=== PATIENT | male | born 1950 | race Caucasian/White ===

== ENCOUNTER 2017-03-25 05:52 | Emergency (ER) | payer OTHER ==
[~2017-03-25] VITALS: Ht 175.3 cm; Wt 113.3 kg
[2017-03-25 05:56] VITALS: TEMP 36.4; Ht 175.3 cm; Wt 113.3 kg
[2017-03-25] MEDS ORDERED: SODIUM CHLORIDE 0.9% 1000ML 1,000 ML IV STA (06:39)
[2017-03-25] MEDS ORDERED: SODIUM CHLORIDE 0.9% 1000ML 1,000 ML IV ONE (06:39)
[2017-03-25] MEDS ORDERED: ONDANSETRON INJ 2 MG/ML 2 ML VIAL IV STA (06:39)
[2017-03-25] MEDS ORDERED: KETOROLAC TROMETHAMINE 30 MG/ML VIAL IV STA (06:39)
--- NOTE | 2017-03-25 06:45 | EMERGENCY ROOM VISIT NOTE ---
History Report prepared by Mckenzie: Manjula Thompson Under the Supervision of: Dr. Calvin Oates M.D. First contact with patient: 06:29 Chief Complaint: BACK PAIN Stated Complaint: BACK PAIN History of Present Illness The patient is a 66 year old male who presents to the Emergency Room with complaints of intermittent right lower back pain beginning 1 week ago. The patient states that he was at work 1 week ago and had a bowel movement and when he stood up he had pain across his lower back. He reports that over the next few days his pain worsened and yesterday he had 3 episodes of back spasm during his meetings that lasted for about 20 minutes. He notes that he used heat on his back without relief of his symptoms. The patient states that he has no history of kidney stones. He complains of dry heaves and nausea. He denies any abdominal pain, fever, chills, vomiting, rash, urinary symptoms, chest pain, shortness of breath, and changes in bowel movements. He notes that he is on a baby aspirin once a day. The patient reports that his pain is worse with breathing. Source of History: patient Onset: 1 week ago Position: back (lower) Timing: intermittent Modifying Factors (Worsening): breathing Associated Symptoms: + nausea, No fevers, No chills, No chest pain, No SOB, No vomiting, No abdominal pain, No urinary symptoms, No rash Note: He complains of dry heaves. He denies any changes in bowel movements. Review of Systems See HPI for pertinent positives & negatives. A total of 10 systems reviewed and were otherwise negative. Past Medical & Surgical Medical Problems: (1) Hypertension Old medical records were attempted to be reviewed but there are no old records at this hospital. Nurse's notes were reviewed and I agree with. Denies history of kidney stones. Family History No pertinent family history stated. Social History Smoking Status: Never Smoker Housing Status: lives with family Occupation Status: employed Current/Historical Medications Scheduled Aspirin (Aspirin Ec), 81 MG PO DAILY Atenolol (Tenormin), 50 MG PO DAILY Ciprofloxacin Hcl (Cipro), 500 MG PO BID Dietary Management Product (Rheumate), 1 CAP PO DAILY Ezetimibe (Zetia), 10 MG PO DAILY Fish Oil (Alma-3), 1 CAP PO DAILY Fluoxetine (Prozac), 20 MG PO DAILY Milk Thistle (Silybum Marian[place] (Milk Thistle), 1,000 MG PO DAILY Omeprazole (Prilosec), 20 MG PO DAILY Tamsulosin Hcl (Flomax), 0.4 MG PO QD Vitamin E (Vitamin E), 1,000 UNIT PO DAILY Scheduled PRN Oxycodone Immediate Rel Tab (Roxicodone Ir), 1-2 TAB PO Q4H PRN for Severe Pain Allergies Coded Allergies: No Known Allergies (Unverified , 03/25/17) Physical Exam Vital Signs Date Time Temp Pulse Resp B/P (MAP) Pulse Ox O2 Delivery O2 Flow Rate FiO2 03/25/17 08:17 80 16 153/82 96 03/25/17 07:33 67 16 145/64 97 Room Air 03/25/17 05:56 36.4 64 18 202/87 100 Room Air Physical Exam General: Well developed well nourished, breathing comfortably on room air. Normal speech. Uncomfortable appearing middle aged male complaining of right flank pain. HEENT: Normal cephalic atraumatic. Pupils are equal round and reactive to light. Extraocular movements are intact. Oropharynx is pink with moist mucous membranes. No swelling of the mouth lips or tongue. Neck: Supple with a midline trachea. No meningeal signs or stiffness, no JVD or bruits. No Stridor. Chest: Clear to auscultation bilaterally. No wheezes or rhonchi. No increased work of breathing. Heart: regular rate and rhythm. Abdomen: Soft nontender, nondistended without rebound guarding or rigidity. Extremities: No cyanosis clubbing or edema. No calf tenderness or assymetry Spine/Back. Non tender to palpation. Minimally tender to palpation of the right flank. Skin: Good turgor without rashes. Neurologic exam: Cranial nerves two through 12 are intact. Motor and sensation are intact and symmetrical throughout. Medical Decision & Procedures ER Provider Diagnostic Interpretation: CT results as stated below per my review and radiologist interpretation: CT SCAN OF THE ABDOMEN AND PELVIS WITHOUT CONTRAST FINDINGS: Lower chest: The heart is normal in size and configuration, without pericardial effusion. The lung bases and pleural spaces are clear. Liver: There is hepatic steatosis. No focal masses are visualized. Gallbladder: Cholelithiasis Spleen: Normal in size and attenuation. Pancreas: Unremarkable. Adrenal glands: Unremarkable. Kidneys: There are punctate nonobstructing left renal calculi. There is right-sided hydronephrosis and perinephric stranding. There are tiny right renal calculi. There is obstructing 6 mm proximal right ureteral calculus at the level the right ureteropelvic junction. Bowel: There are no transition zones indicate bowel obstruction. There is colonic diverticulosis. There are no acute peridiverticular inflammatory changes. By history the appendix is surgically absent Peritoneum: There is no intraperitoneal free air or abdominal ascites. Vasculature: The abdominal aorta is normal in course and caliber. Adenopathy: None. Pelvic viscera: There is mild prostamegaly Skeletal structures: No destructive osseous lesions are seen. IMPRESSION: 1. Bilateral nephrolithiasis 2. 6 mm obstructing calculus at the level of the right ureteropelvic junction Electronically signed by: Reid Marquez M.D. 03/25/2017 7:39 AM Dictated Date/Time: 03/25/2017 7:37 AM Laboratory Results 03/25/17 06:50 Red Blood Count 5.35, Mean Corpuscular Volume 91.4, Mean Corpuscular Hemoglobin 33.3, Mean Corpuscular Hemoglobin Concent 36.4, Mean Platelet Volume 10.6, Neutrophils (%) (Auto) 82.1, Lymphocytes (%) (Auto) 9.5, Monocytes (%) (Auto) 7.5, Eosinophils (%) (Auto) 0.4, Basophils (%) (Auto) 0.3, Neutrophils # (Auto) 12.95, Lymphocytes # (Auto) 1.50, Monocytes # (Auto) 1.19, Eosinophils # (Auto) 0.06, Basophils # (Auto) 0.04 03/25/17 06:50 Test 03/25/17 06:45 03/25/17 06:50 Urine Color YELLOW Urine Appearance CLEAR (CLEAR) Urine pH 5.0 (4.5-7.5) Urine Specific [place] 1.024 (1.000-1.030) Urine Protein NEG (NEG) Urine Glucose (UA) 1+ (NEG) Urine Ketones 1+ (NEG) Urine Occult Blood 3+ (NEG) Urine Nitrite NEG (NEG) Urine Bilirubin NEG (NEG) Urine Urobilinogen NEG (NEG) Urine Leukocyte Esterase NEG (NEG) Urine WBC (Auto) 1-5 /hpf (0-5) Urine RBC (Auto) 10-30 /hpf (0-4) Urine Hyaline Casts (Auto) 1-5 /lpf (0-5) Urine Epithelial Cells (Auto) 0-5 /lpf (0-5) Urine Bacteria (Auto) NEG (NEG) White Blood Count 15.77 K/uL (4.8-10.8) Red Blood Count 5.35 M/uL (4.7-6.1) Hemoglobin 17.8 g/dL (14.0-18.0) Hematocrit 48.9 % (42-52) Mean Corpuscular Volume 91.4 fL (80-100) Mean Corpuscular Hemoglobin 33.3 pg (25-34) Mean Corpuscular Hemoglobin Concent 36.4 g/dl (32-36) Platelet Count 186 K/uL (130-400) Mean Platelet Volume 10.6 fL (7.4-10.4) Neutrophils (%) (Auto) 82.1 % Lymphocytes (%) (Auto) 9.5 % Monocytes (%) (Auto) 7.5 % Eosinophils (%) (Auto) 0.4 % Basophils (%) (Auto) 0.3 % Neutrophils # (Auto) 12.95 K/uL (1.4-6.5) Lymphocytes # (Auto) 1.50 K/uL (1.2-3.4) Monocytes # (Auto) 1.19 K/uL (0.11-0.59) Eosinophils # (Auto) 0.06 K/uL (0-0.5) Basophils # (Auto) 0.04 K/uL (0-0.2) RDW Standard Deviation 44.3 fL (36.4-46.3) RDW Coefficient of Variation 13.4 % (11.5-14.5) Immature Granulocyte % (Auto) 0.2 % Immature Granulocyte # (Auto) 0.03 K/uL (0.00-0.02) Anion Gap 9.0 mmol/L (3-11) Est Creatinine Clear Calc Drug Dose 64.4 ml/min Estimated GFR () 60.3 Estimated GFR (Non- 52.0 BUN/Creatinine Ratio 14.4 (10-20) Calcium Level 10.0 mg/dl (8.5-10.1) Total Bilirubin 0.5 mg/dl (0.2-1) Direct Bilirubin 0.1 mg/dl (0-0.2) Aspartate Amino Transf (AST/SGOT) 55 U/L (15-37) Alanine Aminotransferase (ALT/SGPT) 110 U/L (12-78) Alkaline Phosphatase 166 U/L (45-117) Total Protein 8.4 gm/dl (6.4-8.2) Albumin 4.3 gm/dl (3.4-5.0) Lipase 143 U/L (73-393) Laboratory studies as stated above per my review. Medications Administered Medications (Trade) Dose Ordered Sig/Coty Route Start Time Stop Time Status Last Admin Dose Admin Sodium Chloride 1,000 ml @ 999 mls/hr Q1H1M STAT IV 03/25/17 06:39 03/25/17 07:39 DC 03/25/17 06:39 999 MLS/HR Ondansetron HCl (Zofran Inj) 4 mg NOW STAT IV 03/25/17 06:39 03/25/17 06:42 DC 03/25/17 07:02 4 MG Ketorolac Tromethamine (Toradol Inj) 30 mg NOW STAT IV 03/25/17 06:39 03/25/17 06:42 DC 03/25/17 07:02 30 MG Ciprofloxacin (Cipro Tab) 500 mg NOW STAT PO 03/25/17 08:04 03/25/17 08:05 DC 03/25/17 08:28 500 MG Tamsulosin HCl (Flomax Cap) 0.4 mg NOW STAT PO 03/25/17 08:04 03/25/17 08:05 DC 03/25/17 08:28 0.4 MG ED Course 0631: Past medical records reviewed. The patient was evaluated in room B9, and a complete history and physical examination were performed. 0639: Toradol Inj 30mg IV, Zofran Inj 4mg IV, Sodium Chloride 1000 ml @ 200 mls/ hr IV, Sodium Chloride 1000 ml @ 999 mls/hr IV. 0655: I reevaluated the patient. He is resting comfortably and is waiting to go over to CT scan. Blood work and urine have been obtained. 0703: I reevaluated the patient. He was just medicated and is on his way to CT scan. 0804: The patient feels better and would like to go home. 0804: Flomax Cap 0.4mg PO, Cipro Tab 500mg PO. 0815: Oxycodone HCl 1 homepack PO. 0817: Upon reevaluation, the patient is doing well. I discussed the results and treatment plan with the patient. He verbalized agreement of the treatment plan. The patient was discharged home. Medical Decision Differential diagnosis includes kidney stone, musculoskeletal, infection, electrolyte or metabolic abnormality, aneurism. Medication Reconciliation: I attest that I have personally reviewed the patient' s current medication list. Blood Pressure Screening: Patient was found to have a slightly elevated blood pressure due to pain. I do not believe that the patient requires hypertension monitoring. This patient comes in as described above he has right flank pain. It's been going on for a week but more intermittently, constant last night he appears very uncomfortable. There is no radiation down his leg. he has no numbness or weakness or anything to suggest cauda equina syndrome or neurologic or neurovascular compromise. He has no abdominal pain or distention his vital signs are stable in fact he is hypertensive likely secondary to pain. IV access was established and blood work was obtained he was given Toradol 30 mg IV and Zofran 4 mg IV. Blood work urinalysis and CAT scan of the abdomen was ordered. I wanted to investigate the possibility of a kidney stone and also rule out other pathology such as aneurysm although I think that's less likely. CAT scan does show a proximal 6 mm stone. Given the fact has been there for a week and is large and proximal, it may not pass on its own. He seems much more comfortable and does feel up to going home. I will start him on Cipro for the possibility of bacterial coverage however at this point ,he has nothing to suggest infection or pyelonephritis. He will strain his urine use ibuprofen for pain. For breakthrough pain, use OxyIR 5 mg, one or 2 pills every 4-6 hours as needed. He was warned that OxyIR could make him drowsy and do not take before drinking, driving, working. They should have close follow-up with his regular doctor urologist. Return ER if: fever, chills, not tolerating fluids, pain not adequately tolerated, any new problems concerns. Impression Primary Impression: Right flank pain Additional Impression: Kidney stone Scribe Attestation The scribe's documentation has been prepared under my direction and personally reviewed by me in its entirety. I confirm that the note above accurately reflects all work, treatment, procedures, and medical decision making performed by me. Departure Information Dispostion Home / Self-Care Prescriptions Tamsulosin Hcl (FLOMAX) 0.4 Mg Cap 0.4 MG PO QD for 14 Days, #14 CAP Prov: Calvin Oates M.D. 03/25/17 Ciprofloxacin Hcl (CIPRO) 500 Mg Tab 500 MG PO BID, #14 TAB Prov: Calvin Oates M.D. 03/25/17 Oxycodone Immediate Rel Tab (ROXICODONE IR) 5 Mg Tab 1-2 TAB PO Q4H Y for Severe Pain, #24 TAB Prov: Calvin Oates M.D. 03/25/17 Referrals No Doctor, Assigned (PCP) Forms HOME CARE DOCUMENTATION FORM, IMPORTANT VISIT INFORMATION Patient Instructions [facility] Additional Instructions Rest. Drink plenty of fluids. Strain your urine. Use ibuprofen 600 mg every 6 hours, take with food For more severe pain, may use OxyIR 5 mg, one or 2 pills every 4-6 hours as needed OxyIR may make you drowsy and do not take before drinking, driving, working Use Flomax once a day Return if: Fever or chills, pain not adequately controlled, vomiting, worsening symptoms, any new problems concerns Follow-up with your doctor/urologist on Tuesday. In all likelihood this stone will not pass and you may need intervention Problem Qualifiers
[2017-03-25] MEDS ORDERED: VITA10004 PO (06:55)
[2017-03-25] MEDS ORDERED: PRLSR20 PO (06:55)
[2017-03-25] MEDS ORDERED: ASPI81TA28 PO (06:55)
[2017-03-25] MEDS ORDERED: ATEN50TA8 PO (06:55)
[2017-03-25] MEDS ORDERED: OMEG10007 PO (06:55)
[2017-03-25] MEDS ORDERED: FLUO20CA35 PO (06:55)
[2017-03-25] MEDS ORDERED: EZET10TA63 PO (06:55)
[2017-03-25] MEDS ORDERED: MILK1CAP9 PO (06:55)
[2017-03-25] MEDS ORDERED: [UNRECOGNIZED DRUG - CODE] PO (06:56)
[2017-03-25 07:06] LABS: BASO % 0.3 %; BASO ABS # 0.04 K/uL (0-0.2); COMPLETE YES; EOS % 0.4 %; HEMATOCRIT 48.9 % (42-52); IG% 0.2 %; LYMPH % 9.5 %; MEAN CELL VOLUME 91.4 fL (80-100); MEAN CORPUSCULAR HEMOGLOBIN 33.3 pg (25-34); MEAN CORPUSCULAR HGB CONC 36.4 g/dl (32-36); MEAN PLATELET VOLUME 10.6 fL (7.4-10.4); MONO % 7.5 %; NEUT % 82.1 %; PLATELET COUNT 186 K/uL (130-400); RED BLOOD COUNT 5.35 M/uL (4.7-6.1); WHITE BLOOD COUNT 15.77 K/uL (4.8-10.8)
[2017-03-25 07:21] LABS: URINE APPEARANCE CLEAR (CLEAR); URINE BILIRUBIN NEG (NEG); URINE COLOR YELLOW; URINE EPITHELIAL CELL AUTO 0-5 /lpf (0-5); URINE NITRITE NEG (NEG); URINE SPECIFIC GRAVITY 1.024 (1.000-1.030); UROBILINOGEN NEG (NEG)
[2017-03-25 07:32] LABS: MANUAL MICROSCOPIC REQUIRED? NO; REVIEW REQ? NO
[2017-03-25 07:35] LABS: BUN/CREATININE RATIO 14.4 (10-20); CREATININE 1.4 mg/dl (0.60-1.40); POTASSIUM 4.2 mmol/L (3.5-5.1)
--- NOTE | 2017-03-25 07:40 | DIAGNOSTIC IMAGING REPORT ---
CT SCAN OF THE ABDOMEN AND PELVIS WITHOUT CONTRAST CLINICAL HISTORY: Right flank pain COMPARISON STUDY: No previous studies for comparison. TECHNIQUE: CT scan of the abdomen and pelvis was performed from the lung bases to the proximal femurs. Images are reviewed in the axial, sagittal, and coronal planes. IV contrast was not administered for this examination. CT DOSE: 1125.21 mGy.cm FINDINGS: Lower chest: The heart is normal in size and configuration, without pericardial effusion. The lung bases and pleural spaces are clear. Liver: There is hepatic steatosis. No focal masses are visualized. Gallbladder: Cholelithiasis Spleen: Normal in size and attenuation. Pancreas: Unremarkable. Adrenal glands: Unremarkable. Kidneys: There are punctate nonobstructing left renal calculi. There is right-sided hydronephrosis and perinephric stranding. There are tiny right renal calculi. There is obstructing 6 mm proximal right ureteral calculus at the level the right ureteropelvic junction. Bowel: There are no transition zones indicate bowel obstruction. There is colonic diverticulosis. There are no acute peridiverticular inflammatory changes. By history the appendix is surgically absent Peritoneum: There is no intraperitoneal free air or abdominal ascites. Vasculature: The abdominal aorta is normal in course and caliber. Adenopathy: None. Pelvic viscera: There is mild prostamegaly Skeletal structures: No destructive osseous lesions are seen. IMPRESSION: 1. Bilateral nephrolithiasis 2. 6 mm obstructing calculus at the level of the right ureteropelvic junction Electronically signed by: Reid Marquez M.D. 03/25/2017 7:39 AM Dictated Date/Time: 03/25/2017 7:37 AM
[2017-03-25] MEDS ORDERED: TAMSULOSIN HCL 0.4 MG CAP PO STA (08:04)
[2017-03-25] MEDS ORDERED: CIPROFLOXACIN 500 MG TAB PO STA (08:04)
[2017-03-25] MEDS ORDERED: TAMS0.4C38 PO (08:07)
[2017-03-25] MEDS ORDERED: OXYC1TAB3 PO (08:07)
[2017-03-25] MEDS ORDERED: CIPR-255 PO (08:07)
[2017-03-25] MEDS ORDERED: OXYCODONE IR HOME PACK PO ONE (08:15)
[2017-03-25 08:17] VITALS: BP 153/82; PULSE 80; O2SAT 96
== END 2017-03-25 08:19 | disposition home or self-care (01) ==
LOC: C.EDB 05:54
DX: N20.0 Calculus of kidney (principal); I10 Essential (primary) hypertension; Z79.82 Long term (current) use of aspirin; Z79.899 Other long term (current) drug therapy